=== PATIENT | female | born 1980 | race Caucasian/White ===

== ENCOUNTER 2017-03-14 15:49 | Emergency (ER) | payer MEDICAID ==
[2017-03-14 15:49] VITALS: BMI 24.7
[2017-03-14 16:03] VITALS: RESP 16
--- NOTE | 2017-03-14 16:16 | ED PDOC ---
HPI: General Adult Time Seen by Provider: 03/14/17 16:15 Chief Complaint (Nursing): Back Pain Chief Complaint (Provider): back pain, abdominal pain History Per: Patient Additional Complaint(s): 37-year-old female presents with left flank pain and dysuria that started 2 days ago. Patient has had subjective fever and nausea but denies vomiting. She was seen by her primary doctor today and was instructed to come to ED. Patient also has history of kidney stones. She has not noticed any hematuria, vaginal bleeding or vaginal discharge. Patient is currently not sexually active and states she has not been sexually active in 2 years. She denies any concern for STD. Past Medical History Reviewed: Historical Data, Nursing Documentation, Vital Signs Vital Signs: Last Vital Signs Temp 98.4 F 03/14/17 15:58 Pulse 78 03/14/17 15:58 Resp 16 03/14/17 15:58 BP 118/65 03/14/17 15:58 Pulse Ox 100 03/14/17 18:57 - Medical History PMH: Anemia, Asthma - Surgical History Surgical History: Appendectomy - Family History Family History: States: No Known Family Hx - Living Arrangements Living Arrangements: With Family - Social History Current smoker - smoking cessation education provided: No Alcohol: None Drugs: Denies - Home Medications Home Medications: Ambulatory Orders Medication Instructions Recorded Ascorbic Acid [Vitamin C 500 mg 2 tab PO DAILY 03/14/17 Tab] Biotin [Meribin] 2 tab PO DAILY 03/14/17 Ibuprofen [Motrin] 600 mg PO Q6 PRN #15 tab 03/14/17 Levofloxacin [Levaquin] 500 mg PO DAILY #6 tablet 03/14/17 - Allergies Allergies/Adverse Reactions: Allergies Allergy/AdvReac Type Severity Reaction Status Date / Time Penicillins Allergy Intermediate RASH Verified 03/14/17 15:58 unknown iv antibiotic Allergy ITCHING Uncoded 03/14/17 15:58 Review of Systems ROS Statement: Except As Marked, All Systems Reviewed And Found Negative Constitutional: Positive for: Fever (subjective), Chills Cardiovascular: Negative for: Chest Pain, Palpitations Respiratory: Negative for: Cough Gastrointestinal: Positive for: Nausea, Abdominal Pain (left flank pain). Negative for: Vomiting, Diarrhea Genitourinary Female: Positive for: Dysuria, Frequency. Negative for: Hematuria , Vaginal Discharge, Vaginal Bleeding Physical Exam - Reviewed Nursing Documentation Reviewed: Yes Vital Signs Reviewed: Yes - Physical Exam Appears: Positive for: Well, Non-toxic, No Acute Distress Skin: Negative for: Rash Eye Exam: Positive for: Normal appearance, EOMI, PERRL Cardiovascular/Chest: Positive for: Regular Rate, Rhythm Respiratory: Positive for: Normal Breath Sounds Gastrointestinal/Abdominal: Positive for: Tenderness (LLQ). Negative for: Distended, Guarding, Rebound Back: Positive for: L CVA Tenderness (moderate). Negative for: R CVA Tenderness , Vertebral Tenderness Extremity: Positive for: Normal ROM. Negative for: Pedal Edema Neurologic/Psych: Positive for: Alert, Oriented - Laboratory Results Result Diagrams: 03/14/17 17:48 03/14/17 17:48 Urine POC: Negative Urine dip results: Positive for: Leukocyte Esterase (small), Blood (small). Negative for: Nitrate, Ketones, Glucose, Bilirubin, Protein - ECG O2 Sat by Pulse Oximetry: 100 Pulse Ox Interpretation: Normal - Other Rad CT abd and pelvis X-Ray: Read By Radiologist X-Ray Interpretation: no renal stone, NAP Medical Decision Making Medical Decision Makin37 year old with flank pain and dysuria. Patient is non-toxic appearing, afebrile. Plan: CT abd and pelvis without contrast IVF CBC CMP UA and urine culture 15 mg IV toradol 4 mg IV zofran Patient states the pain has resolved after Toradol dose. She is aware of all diagnostic testing results, all questions answered. CT is negative. Case was d/w PMD Panchito Be. Patient will receive initial dose of IV levaquin along with script for same. Rx also given for motrin for pain. Patient was instructed to drink plenty of fluids and follow-up with primary doctor in 2-3 days. She is aware she can return to ED at any time if acutely worse. Disposition - Clinical Impression Clinical Impression: Urinary tract infection, Pyelonephritis - Patient ED Disposition Is Patient to be Admitted: No Counseled Patient/Family Regarding: Studies Performed, Diagnosis, Need For Followup, Rx Given - Disposition Referrals: Panchito Be, SYEDA, [employer] [Family Provider] - Disposition: Routine/Home Disposition Time: 19:17 Condition: STABLE Additional Instructions: Prescription meds as directed. Drink plenty of fluids. Follow-up with primary doctor in 2-3 days. Prescriptions: Ibuprofen [Motrin] 600 mg PO Q6 PRN #15 tab PRN Reason: Pain, Moderate (4-7) Levofloxacin [Levaquin] 500 mg PO DAILY #6 tablet Instructions: Acute Pyelonephritis (ED), Urinary Tract Infection in Women (ED) Forms: [facility] ED School/Work Excuse Results - Lab Results Lab Results: 03/14/17 03/14/17 03/14/17 17:48 17:48 17:11 WBC 12.7 H D RBC 3.64 L Hgb 11.6 L Hct 35.5 MCV 97.5 MCH 31.8 H MCHC 32.7 L RDW 13.1 Plt Count 272 MPV 8.4 Neut % (Auto) 68.4 Lymph % (Auto) 18.0 L [place] % (Auto) 12.8 H Eos % (Auto) 0.5 Baso % (Auto) 0.3 Neut # 8.7 H Lymph # 2.3 [place] # 1.6 H Eos # 0.1 Baso # 0.0 Sodium 138 Potassium 4.1 Chloride 103 Carbon Dioxide 23 Anion Gap 15 BUN 12 Creatinine 0.6 L Est GFR ( Amer) > 60 Est GFR (Non-Af Amer) > 60 Random Glucose 66 Calcium 9.2 Total Bilirubin 1.3 AST 26 ALT 17 Alkaline Phosphatase 67 Total Protein 7.6 Albumin 4.3 Globulin 3.3 Albumin/Globulin Ratio 1.3 Urine Color Yellow Urine Clarity Clear Urine pH 6.0 Ur Specific [place] 1.013 Urine Protein Negative Urine Glucose (UA) Neg Urine Ketones Negative Urine Blood Small Urine Nitrate Negative Urine Bilirubin Negative Urine Urobilinogen 0.2-1.0 Ur Leukocyte Esterase Small Urine RBC (Auto) 6 H Urine Microscopic WBC 9 H Ur Squamous Epith Cells 1 Urine Bacteria Rare
[2017-03-14] MEDS ORDERED: Sodium Chloride 0.9% 1,000 ML IV STA (16:53)
[2017-03-14 17:37] LABS: RBC URINE 6 /hpf (0-3); URINE BACTERIA RARE (<OCC); URINE BILIRUBIN NEGATIVE (NEGATIVE); URINE BLOOD SMALL (NEGATIVE); URINE COLOR YELLOW (YELLOW); URINE GLUCOSE (UA) NEG (Normal); URINE KETONE NEGATIVE (NEGATIVE); URINE LEUKOCYTE ESTERASE SMALL Leu/uL (Negative); URINE PROTEIN NEGATIVE (NEGATIVE); URINE UROBILINOGEN 0.2-1.0 mg/dL (0.2-1.0); WBC URINE 9 /hpf (0-5)
--- NOTE | 2017-03-14 18:32 | CT ---
PROCEDURE: CT Abdomen and Pelvis without intravenous contrast HISTORY: left flank pain COMPARISON: 05/16/2014 TECHNIQUE: Technique. Contrast Dose: Radiation dose: Total exam DLP = 348 mGy-cm. This CT exam was performed using one or more of the following dose reduction techniques: Automated exposure control, adjustment of the mA and/or kV according to patient size, and/or use of iterative reconstruction technique. FINDINGS: LOWER THORAX: Unremarkable. LIVER: Unremarkable. No gross lesion or ductal dilatation. GALLBLADDER AND BILE DUCTS: Unremarkable. PANCREAS: Unremarkable. No gross lesion or ductal dilatation. SPLEEN: Unremarkable. ADRENALS: Unremarkable. No mass. KIDNEYS AND URETERS: Unremarkable. No hydronephrosis. No solid mass. VASCULATURE: Unremarkable. No aortic aneurysm. BOWEL: Unremarkable. No obstruction. No gross mural thickening. APPENDIX: Unremarkable. Normal appendix. PERITONEUM: Unremarkable. No free fluid. No free air. LYMPH NODES: Unremarkable. No enlarged lymph nodes. BLADDER: Unremarkable. REPRODUCTIVE: Enlarged uterus. BONES: No acute fracture. OTHER FINDINGS: None. IMPRESSION: No renal calculus or hydronephrosis.
[2017-03-14 18:54] LABS: BASO % 0.3 % (0.0-2.0); EOS # 0.1 K/uL (0.0-0.7); EOS % 0.5 % (0.0-4.0); HEMATOCRIT 35.5 % (34.0-47.0); LYMPH # 2.3 K/uL (1.0-4.3); MEAN CELL VOLUME 97.5 fl (81.0-99.0); MEAN CORPUSCULAR HEMOGLOBIN 31.8 pg (27.0-31.0); MEAN CORPUSCULAR HGB CONC 32.7 g/dL (33.0-37.0); MEAN PLATELET VOLUME 8.4 fl (7.2-11.7); MONO # 1.6 K/uL (0.0-0.8); MONO % 12.8 % (0.0-10.0); NEUT # 8.7 K/uL (1.8-7.0); NEUT % 68.4 % (50.0-75.0); RED CELL DISTRIBUTION WIDTH 13.1 % (11.5-14.5); WHITE BLOOD COUNT 12.7 K/uL (4.8-10.8)
[2017-03-14] MEDS ORDERED: levoFLOXacin 500 mg in D5W 500 MG/100 ML BAG IVPB ONE (19:03)
[2017-03-14] MEDS ORDERED: levoFLOXacin 500 mg in D5W 500 MG/100 ML BAG IVPB STA (19:04)
[2017-03-14 19:10] LABS: ALB/GLOB RATIO 1.3 (1.0-2.1); ALKALINE PHOSPHATASE 67 U/L (38-126); ALT/SGPT 17 U/L (9-52); AST/SGOT 26 U/L (14-36); BILIRUBIN,TOTAL 1.3 mg/dl (0.2-1.3); BLOOD UREA NITROGEN 12 mg/dl (7-17); CALCIUM 9.2 mg/dL (8.4-10.2); CARBON DIOXIDE 23 mmol/L (22-30); CHLORIDE 103 mmol/L (98-107); GFR AFRICAN-AMERICAN > 60; GLUCOSE,RANDOM 66 mg/dL (65-105); POTASSIUM 4.1 MMOL/L (3.6-5.0); SODIUM 138 mmol/l (132-148); TOTAL PROTEIN 7.6 G/DL (6.3-8.2)
[2017-03-14 20:17] VITALS: BP 91/65; PULSE 83; TEMP 98.8; O2SAT 99
== END 2017-03-14 20:23 | disposition home or self-care (01) ==
LOC: H.ER 15:49
DX: N39.0 Urinary tract infection, site not specified (principal); N12 Tubulo-interstitial nephritis, not specified as acute or chronic; J45.909 Unspecified asthma, uncomplicated; Z88.0 Allergy status to penicillin; R11.0 Nausea

== ENCOUNTER 2017-09-29 17:52 | Emergency (ER) | payer MEDICAID, OTHER ==
[2017-09-29 17:52] VITALS: BMI 24.7
[2017-09-29 17:59] VITALS: BP 134/73; PULSE 59; RESP 16; TEMP 97.9; O2SAT 100
--- NOTE | 2017-09-29 18:02 | ED PDOC ---
HPI: Abdomen Time Seen by Provider: 09/29/17 18:01 Chief Complaint (Nursing): Abdominal Pain Chief Complaint (Provider): abdominal pain History Per: Patient Additional Complaint(s): 37-year-old female presents to emergency department with lower abdominal pain for 2-3 weeks. Patient states that she was diagnosed with gonorrhea 1 month ago but was never treated for it. Patient has allergy to penicillin and was unable to receive Rocephin injection at the time of diagnosis. She never followed up and presents today with persistent pelvic pain and discharge. She denies fever or chills. She has had mild nausea but no vomiting. Past Medical History Reviewed: Historical Data, Nursing Documentation, Vital Signs Vital Signs: Last Vital Signs Temp 97.9 F 09/29/17 17:56 Pulse 59 L 09/29/17 17:56 Resp 16 09/29/17 17:56 BP 134/73 09/29/17 17:56 Pulse Ox 100 09/29/17 19:19 - Medical History PMH: Anemia, Asthma - Surgical History Surgical History: Appendectomy - Family History Family History: States: No Known Family Hx - Living Arrangements Living Arrangements: With Family - Social History Current smoker - smoking cessation education provided: Yes Alcohol: None Drugs: Denies - Home Medications Home Medications: Ambulatory Orders Medication Instructions Recorded Ascorbic Acid [Vitamin C 500 mg 2 tab PO DAILY 03/14/17 Tab] Biotin [Meribin] 2 tab PO DAILY 03/14/17 Ibuprofen [Motrin] 600 mg PO Q6 PRN #15 tab 03/14/17 Levofloxacin [Levaquin] 500 mg PO DAILY #6 tablet 03/14/17 Doxycycline Monohydrate 100 mg PO BID #14 tablet 09/29/17 - Allergies Allergies/Adverse Reactions: Allergies Allergy/AdvReac Type Severity Reaction Status Date / Time Penicillins Allergy Intermediate RASH Verified 03/14/17 15:58 unknown iv antibiotic Allergy ITCHING Uncoded 03/14/17 15:58 Review of Systems ROS Statement: Except As Marked, All Systems Reviewed And Found Negative Constitutional: Negative for: Fever Gastrointestinal: Positive for: Nausea, Abdominal Pain. Negative for: Vomiting , Diarrhea, Constipation Genitourinary Female: Positive for: Vaginal Discharge. Negative for: Dysuria Physical Exam - Reviewed Nursing Documentation Reviewed: Yes Vital Signs Reviewed: Yes - Physical Exam Appears: Positive for: Well, Non-toxic, No Acute Distress Skin: Negative for: Rash Eye Exam: Positive for: Normal appearance Cardiovascular/Chest: Positive for: Regular Rate, Rhythm Respiratory: Positive for: Normal Breath Sounds Gastrointestinal/Abdominal: Positive for: Other (Mild adnexal tenderness bilaterally with no rebound or guarding) Back: Negative for: L CVA Tenderness, R CVA Tenderness Extremity: Positive for: Normal ROM Neurologic/Psych: Positive for: Alert, Oriented - Laboratory Results Urine POC: Negative Urine dip results: Negative for: Leukocyte Esterase, Blood, Nitrate, Ketones, Glucose, Bilirubin, Protein - ECG O2 Sat by Pulse Oximetry: 100 Pulse Ox Interpretation: Normal Medical Decision Making Medical Decision Makin37 year old with pelvic pain Plan Urine dip Urine culture CHL/GC culture Patient has severe penicillin allergy and was recently diagnosed with gonorrhea. Patient states she has had previous reaction to Rocephin in the past. She was medicated in ED with 2 g of Zithromax oral dose as well as 240 mg IM gentamicin. Patient given prescription for doxycycline. 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 Disposition - Clinical Impression Clinical Impression: Gonorrhea, PID (pelvic inflammatory disease) - Patient ED Disposition Is Patient to be Admitted: No Counseled Patient/Family Regarding: Studies Performed, Diagnosis, Need For Followup, Rx Given, Smoking Cessation - Disposition [facility] Disposition: Routine/Home Disposition Time: 19:24 Condition: STABLE Additional Instructions: Take antibiotics as directed. [id number] Tylenol or Advil for pain as needed. Follow-up with board machine set up operator and have test repeated after course of antibiotics is completed. Prescriptions: Doxycycline Monohydrate 100 mg PO BID #14 tablet Instructions: Gonorrhea (ED), Pelvic Inflammatory Disease (ED), Safe Sex (ED) Forms: [employer] ([place])
[2017-09-29] MEDS ORDERED: Gentamicin 80 mg/2mL Inj. IM STA (18:25)
== END 2017-09-29 22:28 | disposition home or self-care (01) ==
LOC: H.ER 17:52
DX: N73.9 Female pelvic inflammatory disease, unspecified (principal); A54.9 Gonococcal infection, unspecified; Z88.0 Allergy status to penicillin; F17.200 Nicotine dependence, unspecified, uncomplicated; J45.909 Unspecified asthma, uncomplicated
CPT/HCPCS: 81025; 87086; 87181; 96372; 99282; J1580